=== PATIENT | male | born 1950 | race Caucasian/White ===

== ENCOUNTER 2020-08-28 12:05 | Outpatient (CLI) | payer MEDICARE, OTHER, SELFPAY ==
[2020-08-28 12:39] LABS: Basophils % 0.3 %; Eosinophils % 0.9 %; Hematocrit 42.3 % (42.0-52.0); Hemoglobin 13.9 g/dL (11.7-16.6); Lymphocytes # 1.3 10^3/uL (0.8-4.8); Lymphocytes % 38.3 %; Mean Corpuscular HGB Conc 32.9 g/dL (30.0-36.0); Mean Corpuscular Hemoglobin 29.4 pg (28.0-34.0); Mean Corpuscular Volume 89.4 fL (80-94); Mean Platelet Volume 10.1 fL (7.4-10.4); Monocytes # 0.3 10^3/uL (0.2-0.9); Monocytes % 9.7 %; Neutrophils # 1.77 10^3/uL (1.8-7.7); Neutrophils % 50.5 %; Nucleated Red Blood Cells % 0 %; Platelet Count 159 10^3/cmm (130-400); Red Blood Count 4.73 10^6/uL (4.1-5.3); White Blood Count 3.5 10^3/uL (4.0-10.0)
--- NOTE | 2020-08-28 17:02 | ONC CON_ITS ---
Dr. Wood New Patient Note Patient: Arnol Palacio Unit #: [id number]: 1950 Dicatated By: Justino Wood M.D.Date of Visit: Aug 28, 2020 Onc MED New Patient/Consult Referring Physician: KRIS DUFFY History of Present Illness: Mr. Arnol Palacio, is a 70-year-old gentleman with no significant past medical history, as per patient during his routine follow-up lab work-up done on June 22, 2020 showed white blood count 2.9 hemoglobin 14.1 g hematocrit 41.3 platelets 173,000, neutrophils 51.9%, absolute neutrophil count 1505,, B12 was 337, peripheral blood smear shows there is leukopenia with neutropenia, no blast cells is identified lymphocytes have mature features.,. Patient denies any recurrent fever, denies any night sweats, denies any weight loss, denies any alcohol use, denies any smoking, denies any [id number] medication, denies any herbs intake, denies any recent infections, denies any recurrent urine tract infection or sinus infection, denies any abdominal fullness, denies any peripheral lymphadenopathy Medications, he is on amlodipine, Past Medical History: Mr. Palacio's medical history consists of bph, hypertension, irritable bowel syndrome, and osteoarthritis. Past Surgical History: Mr. Palacoi's surgical/procedural history consists of left TKA in 2013 and appendectomy in 1959. Medications: amLODIPine Besylate 1 Tablet (of 5 mg) Oral daily, Aspirin 1 Tablet (of 81 mg) Tablet, chewable Oral every am, Flomax 2 Capsule (of 0.4 mg) Oral daily, Proscar 1 Tablet (of 5 mg) Oral daily Allergies: No Known Allergies. Social History: Mr. Palacio is . Mr. Palacio has never smoked. He has no history of drinking. Family History: Mr. Palacio's mother at age 91. Mr. Palacio's father at age 98. Mr. Palacio has 1 brother who is : accidental drowning. He has 1 sister who is alive. Review Of Symptoms: Review of Systems is not available for this patient. Vital Signs: Performed on Aug 28, 2020 14:00: 0, 39.51 (HIGH), 1.73 sq.m, 57 in, 96 %, 51 /min (LOW), 17 /min, 151/81 mm(hg) (HIGH), 97.4 F (LOW), and 182.6 lbs (HIGH). Performance Status: 0 - Fully active, able to carry on all predisease activities without restrictions. (ECOG) Physical Examination: ENMT - No mouth sores, no thrush, no jaundice, No cervical lymphadenopathy, Respiratory - Lungs are clear to auscultation, Cardiovascular - Regular rate and rhythm of heart, Abdomen - Soft, bowel sounds present, Extremities - No visible edema. Lab/Imaging: Most recent lab results are not available for this patient. Impression: Isolated leukopenia/neutropenia etiology unclear could be multifactorial, medication induced although rarely reported with amlodipine, other possibility could be underlying myelodysplasia, could be nutritional, although his B12 level is in normal range but it has been reported B12 level under 400 something can cause hematological abnormalities. Primary bone marrow disorder Hypertension Plan: Discussed with patient regarding his labs from today shows white blood count 3.5, hemoglobin 13.9 hematocrit 42.3 platelets 159,000 ANC 1770, lymphocytes 1300 Clinically, patient doing well with no new signs symptoms, no B symptoms, no signs symptom suggestive of recurrent or acute infection, his follow-up CBC shows improvement in his isolated mild leukopenia/neutropenia, etiology of fluctuating isolated leukopenia/neutropenia could be multifactorial, nutritional,, his B12 level is 337 again as mentioned less than 400.can cause hematological abnormality including leukopenia, patient was advised to try [id number] multivitamin for 1 month and then will repeat his CBC in a month if it shows resolution of leukopenia/neutropenia will monitor otherwise will consider whole blood flow cytometry Signed By: Justino Wood M.D. <<Signature on File>>
== END 2020-08-28 12:06 | disposition home or self-care (01) ==
LOC: ONCMED 12:15
PROVIDERS: PCP Physician Assistant Medical; Visit Provider Internal Medicine Hematology & Oncology
DX: D72.819 Decreased white blood cell count, unspecified (principal); D70.9 Neutropenia, unspecified; D51.9 Vitamin B12 deficiency anemia, unspecified; I10 Essential (primary) hypertension; Z79.899 Other long term (current) drug therapy
CPT/HCPCS: 36415; 85025; 99204

== ENCOUNTER 2020-09-24 11:57 | Outpatient (CLI) | payer MEDICARE, OTHER, SELFPAY ==
[2020-09-24 12:15] LABS: Basophils % 0.2 %; Eosinophils % 0.5 %; Hematocrit 38.7 % (42.0-52.0); Lymphocytes # 1.5 10^3/uL (0.8-4.8); Lymphocytes % 36.6 %; Mean Corpuscular HGB Conc 33.6 g/dL (30.0-36.0); Mean Corpuscular Hemoglobin 29.7 pg (28.0-34.0); Mean Corpuscular Volume 88.4 fL (80-94); Mean Platelet Volume 9.9 fL (7.4-10.4); Monocytes # 0.4 10^3/uL (0.2-0.9); Monocytes % 9.2 %; Neutrophils # 2.15 10^3/uL (1.8-7.7); Neutrophils % 53.5 %; Nucleated Red Blood Cells % 0 %; Platelet Count 155 10^3/cmm (130-400); Red Blood Count 4.38 10^6/uL (4.1-5.3)
--- NOTE | 2020-09-24 14:10 | ONC FU_ITS ---
Dr. Wood follow up note Patient: Arnol Palacio Unit #: [id number]: 1950 Dicatated By: Justino Wood M.D.Date of Visit:Sep 24, 2020 Onc Med Follow-up/Prog Note History of Present Illness: Mr. Arnol Palacio, is a 70-year-old gentleman with no significant past medical history, as per patient during his routine follow-up lab work-up done on June 22, 2020 showed white blood count 2.9 hemoglobin 14.1 g hematocrit 41.3 platelets 173,000, neutrophils 51.9%, absolute neutrophil count 1505,, B12 was 337, peripheral blood smear shows there is leukopenia with neutropenia, no blast cells is identified lymphocytes have mature features.,. Patient denies any recurrent fever, denies any night sweats, denies any weight loss, denies any alcohol use, denies any smoking, denies any [id number] medication, denies any herbs intake, denies any recent infections, denies any recurrent urine tract infection or sinus infection, denies any abdominal fullness, denies any peripheral lymphadenopathy Medications, he is on amlodipine, Came for follow-up, denies any specific complaints, no fever chills, no nausea or vomiting, no diarrhea or constipation, no recurrent infection, no dysuria or hematuria, no sinus problem, tolerating [id number] multivitamins well otherwise Medications: amLODIPine Besylate 1 Tablet (of 5 mg) Oral daily, Aspirin 1 Tablet (of 81 mg) Tablet, chewable Oral every am, Flomax 2 Capsule (of 0.4 mg) Oral daily, Proscar 1 Tablet (of 5 mg) Oral daily Allergies: No Known Allergies. Review of Systems: Review of Systems is not available for this patient. Vital Signs: Performed on Sep 24, 2020 13:39 Height - 57.00 in Weight - 183 lbs (HIGH) BSA - 1.73 sq.m BMI - 39.60 (HIGH) Temperature - 98.4 F Pulse - 54 /min (LOW) Respiration - 18 /min BP - 132/75 mm(hg) O2 Sat - 97 % Pain - 2 Fatigue - 0 Performance Status: 0 - Fully active, able to carry on all predisease activities without restrictions. (ECOG) Physical Examination: ENMT - No mouth sores, no thrush, no jaundice, no cervical lymphadenopathy, Respiratory - Lungs are clear to auscultation, Cardiovascular - Regular rate and rhythm of heart, Abdomen - 9Soft, bowel sounds present, Extremities - No visible edema. Lab/Imaging: Most recent lab results are not available for this patient. Impression: Fluctuating Isolated leukopenia/neutropenia etiology unclear could be multifactorial, medication induced although rarely reported with amlodipine, other possibility could be underlying myelodysplasia, could be nutritional, although his B12 level is in normal range but it has been reported B12 level under 400 something can cause hematological abnormalities. Primary bone marrow disorder Hypertension Plan: Discussed with patient regarding his labs white blood count 4000 hemoglobin 13 hematocrit 38.7 platelets 155,000 with a normal differential Clinically, patient doing well with no new signs symptoms testing of any infection his follow-up labs shows resolution of mild leukopenia/neutropenia,, patient is on multivitamins, will continue with same and return to clinic in 3 months with CBC Signed By: Justino Wood M.D. <<Signature on File>>
== END 2020-09-24 11:58 | disposition home or self-care (01) ==
LOC: ONCMED 12:01
PROVIDERS: PCP Physician Assistant Medical; Visit Provider Internal Medicine Hematology & Oncology
DX: D70.9 Neutropenia, unspecified (principal); I10 Essential (primary) hypertension; Z79.899 Other long term (current) drug therapy
CPT/HCPCS: 36415; 85025; 99214

== ENCOUNTER 2021-01-07 12:59 | Outpatient (CLI) | payer MEDICARE, OTHER, SELFPAY ==
[2021-01-07 13:35] LABS: Basophils % 0.3 %; Eosinophils % 0.5 %; Hematocrit 38.4 % (42.0-52.0); Hemoglobin 12.8 g/dL (11.7-16.6); Lymphocytes # 1.2 10^3/uL (0.8-4.8); Lymphocytes % 31.1 %; Mean Corpuscular HGB Conc 33.3 g/dL (30.0-36.0); Mean Corpuscular Hemoglobin 29.4 pg (28.0-34.0); Mean Corpuscular Volume 88.3 fl (80-94); Mean Platelet Volume 9.8 fL (7.4-10.4); Monocytes # 0.4 10^3/uL (0.2-0.9); Neutrophils % 59.1 %; Nucleated Red Blood Cells % 0 %; Platelet Count 166 10^3/cmm (130-400); Red Blood Count 4.35 10^6/uL (4.1-5.3); Red Cell Distribution Width 13.9 % (12.1-15.1); White Blood Count 3.9 10^3/uL (4.0-10.0)
--- NOTE | 2021-01-07 16:52 | ONC FU_ITS ---
Dr. Wood follow up note Patient: Arnol Palacio Unit #: [id number]: 1950 Dicatated By: Justino Wood M.D.Date of Visit:Jan 07, 2021 Onc Med Follow-up/Prog Note History of Present Illness: Mr. Arnol Palacio, is a 70-year-old gentleman with no significant past medical history, as per patient during his routine follow-up lab work-up done on June 22, 2020 showed white blood count 2.9 hemoglobin 14.1 g hematocrit 41.3 platelets 173,000, neutrophils 51.9%, absolute neutrophil count 1505,, B12 was 337, peripheral blood smear shows there is leukopenia with neutropenia, no blast cells is identified lymphocytes have mature features.,. Patient denies any recurrent fever, denies any night sweats, denies any weight loss, denies any alcohol use, denies any smoking, denies any [id number]-[id number] medication, denies any herbs intake, denies any recent infections, denies any recurrent urine tract infection or sinus infection, denies any abdominal fullness, denies any peripheral lymphadenopathy Medications, he is on amlodipine, Came for follow-up, denies any specific complaints, no fever chills, no nausea or vomiting, no diarrhea constipation, no night sweats, no weight loss, no peripheral lymphadenopathy, no abdominal fullness, no dysuria Medications: amLODIPine Besylate 1 Tablet (of 5 mg) Oral daily, Aspirin 1 Tablet (of 81 mg) Tablet, chewable Oral every am, Daily Value Multivitamin 1 Tablet Oral daily, Donepezil HCl 1 Tablet (of 5 mg) Oral daily, Flomax 2 Capsule (of 0.4 mg) Oral daily, Garlic 1 Tablet (of 1000 mg) Capsule Oral b.i.d., Omeprazole 1 Tablet (of 40 mg) Capsule Delayed Release Oral daily, Proscar 1 Tablet (of 5 mg) Oral daily Allergies: No Known Allergies. Review of Systems: Review of Systems is not available for this patient. Vital Signs: Performed on Jan 07, 2021 16:21 Height - 57.00 in Weight - 182.6 lbs (LOW) BSA - 1.73 sq.m BMI - 39.51 (HIGH) Temperature - 96.2 F (LOW) Pulse - 49 /min (LOW) Respiration - 18 /min BP - 135/76 mm(hg) O2 Sat - 97 % Pain - 0 Fatigue - 1 Performance Status: 0 - Fully active, able to carry on all predisease activities without restrictions. (ECOG) Physical Examination: ENMT - No mouth sores, no thrush, no jaundice, No cervical lymphadenopathy, Respiratory - Lungs are clear to auscultation, Cardiovascular - Regular rate and rhythm of heart, Abdomen - Soft, bowel sounds present, Extremities - No visible edema. Lab/Imaging: Most recent lab results are not available for this patient. Impression: Fluctuating Isolated leukopenia/neutropenia etiology unclear could be multifactorial, medication induced although rarely reported with amlodipine, other possibility could be underlying myelodysplasia, could be nutritional, although his B12 level is in normal range but it has been reported B12 level under 400 something can cause hematological abnormalities. Primary bone marrow disorder Hypertension Plan: Discussed with patient regarding his labs white blood count 3.9 hemoglobin 12.8 hematocrit 38.4 platelets 166,000 absolute neutrophil count 2300 Clinically, patient is doing well with no new signs symptoms suggestive of infection acute or chronic, his follow-up CBC shows mild leukopenia but adequate neutrophil., Patient has fluctuating mild leukopenia, considering his age could be due to underlying myelodysplasia but at this point no further work-up unless progressive so at this point, we will continue to monitor return to clinic in 3 months with CBC Signed By: Justino Wood M.D. <<Signature on File>>
== END 2021-01-07 13:00 | disposition home or self-care (01) ==
LOC: ONCMED 13:04
PROVIDERS: PCP Physician Assistant Medical; Visit Provider Internal Medicine Hematology & Oncology
DX: D72.819 Decreased white blood cell count, unspecified (principal); I10 Essential (primary) hypertension; Z79.899 Other long term (current) drug therapy
CPT/HCPCS: 36415; 85025; 99214

== ENCOUNTER → 2024-02-04 13:35 | Outpatient (BNVA) | payer MEDICARE, OTHER, SELFPAY | PROVIDERS: PCP Physician Assistant Medical; Visit Provider Specialist | DX: M25.531 Pain in right wrist (principal); M19.031 Primary osteoarthritis, right wrist | CPT/HCPCS: 73110; 99204 ==

== ENCOUNTER → 2024-10-14 11:08 | Outpatient (BNVA) | payer MEDICARE, OTHER, SELFPAY | PROVIDERS: PCP Physician Assistant Medical; Visit Provider Dermatology | DX: S50.911A Unspecified superficial injury of right forearm, initial encounter (principal); S00.80XA Unspecified superficial injury of other part of head, initial encounter; S20.409A Unspecified superficial injuries of unspecified back wall of thorax, initial encounter; S10.80XA Unspecified superficial injury of other specified part of neck, initial encounter; S50.912A Unspecified superficial injury of left forearm, initial encounter; L82.1 Other seborrheic keratosis; L81.4 Other melanin hyperpigmentation; L57.8 Other skin changes due to chronic exposure to nonionizing radiation; D22.5 Melanocytic nevi of trunk; D48.5 Neoplasm of uncertain behavior of skin; L57.0 Actinic keratosis; X58.XXXA Exposure to other specified factors, initial encounter | CPT/HCPCS: 11102; 17000; 99203 ==

== ENCOUNTER → 2024-12-16 10:07 | Outpatient (BNVA) | payer MEDICARE, OTHER, SELFPAY | PROVIDERS: PCP Physician Assistant Medical; Visit Provider Dermatology | DX: S50.911A Unspecified superficial injury of right forearm, initial encounter (principal); S00.80XA Unspecified superficial injury of other part of head, initial encounter; S20.409A Unspecified superficial injuries of unspecified back wall of thorax, initial encounter; S10.80XA Unspecified superficial injury of other specified part of neck, initial encounter; S50.912A Unspecified superficial injury of left forearm, initial encounter; X58.XXXA Exposure to other specified factors, initial encounter; L82.1 Other seborrheic keratosis; L81.4 Other melanin hyperpigmentation; D18.01 Hemangioma of skin and subcutaneous tissue; L28.0 Lichen simplex chronicus; Z08 Encounter for follow-up examination after completed treatment for malignant neoplasm; Z85.828 Personal history of other malignant neoplasm of skin; L57.0 Actinic keratosis | CPT/HCPCS: 17000; 99213 ==